=== PATIENT | male | born 1965 | race Caucasian/White ===

== ENCOUNTER → 2019-08-02 | Outpatient (CLI) | payer OTHER ==
[~2019-08-02] MED LIST: ASPIRIN EC81 M1 PO; FISHOIL PO; LEVOTHROID PO; METFORMIN PO; MICARDIS HCT 81 EAC1; MICARDIS HCT 81 EAC1 PO; NORVASC 2.5 MG2.5 M1 PO; VICTOZA0.6 MG/0.1 SQ; WELCHOL PO
[2019-08-02 06:28] LABS: POTASSIUM 4.2 mmol/L (3.5-5.1)
== END ==
LOC: M.LAB 01:49
PROVIDERS: Anesthesiology
DX: E87.6 Hypokalemia (principal); E11.9 Type 2 diabetes mellitus without complications